=== PATIENT | female | born 1990 | race Caucasian/White ===

== ENCOUNTER 2021-09-21 09:10 | Outpatient (CLI) | payer BC ==
[2021-09-21 10:37] LABS: BHCG - Serum Negative (NEGATIVE); Pregs Control Background? CLEAR/WHITE (CLR/WHITE); Pregs Control Bar Appear? YES (CONTROL BAR)
== END 2021-09-21 09:11 | disposition home or self-care (01) ==
LOC: LABBT 09:10
PROVIDERS: ATTEND Otolaryngology Plastic Surgery within the Head & Neck
DX: Z01.812 Encounter for preprocedural laboratory examination (principal); C73 Malignant neoplasm of thyroid gland; R22.1 Localized swelling, mass and lump, neck; Z20.822 Contact with and (suspected) exposure to COVID-19
CPT/HCPCS: 84703; 85014; U0003; U0005

== ENCOUNTER 2021-09-23 07:54 | Observation (INO) | payer BC ==
[2021-09-21 09:55] VITALS: BMI 27.9
[2021-09-23] MEDS ORDERED: Lidocaine 1% w/Epinephrine 1:100K 30 ML VIAL ONE (10:18)
[2021-09-23] MEDS ORDERED: Bacitracin Zinc Ointment 30 gm TUBE ONE (10:18)
[2021-09-23] MEDS ORDERED: fentaNYL Citrate/PF 100 MCG/2 ML SYRINGE ONE (10:19)
[2021-09-23] MEDS ORDERED: Midazolam HCl 2 mg/2 ml Vial ONE (10:19)
[2021-09-23] MEDS ORDERED: HYDROmorphone 0.5 MG/0.5 ML SYRINGE ONE ×2 (10:19→12:04)
[2021-09-23] MEDS ORDERED: CEFAZOLIN 2 GM VIAL ONE (10:26)
[2021-09-23] MEDS ORDERED: Sodium Chloride 0.9% 100 ML ONE (10:26)
[2021-09-23] MEDS ORDERED: HYDROcodone/Acetaminophen 5/325 mg Tablet PO PRN (14:57)
[2021-09-23] MEDS: Sodium Chloride 0.45% 1,000 ML IV SCH (18:33)
[2021-09-23] MEDS: Ondansetron PF 4 MG/2 ML Vial IVP PRN (18:42)
[2021-09-23] MEDS ORDERED: Hydrocodone-Acetamin 15 ML UDCUP PO PRN (20:49)
[2021-09-23] MEDS ORDERED: Calcitriol 0.25 MCG CAP PO SCH (21:00)
[2021-09-23] MEDS: Morphine 2 MG/ML VIAL SLOW IVP PRN (21:07)
[2021-09-23] MEDS: CEFAZOLIN 1 GM in Sodium Chloride 0.9% 100 ML IVPB SCH (21:14)
[2021-09-23] MEDS: Calcium Carbonate 500 MG TAB PO SCH (23:35)
[2021-09-24] MEDS: Morphine 2 MG/ML VIAL SLOW IVP PRN (01:38)
[2021-09-24] MEDS: Sodium Chloride 0.45% 1,000 ML IV SCH (04:00)
[2021-09-24] MEDS: Ondansetron PF 4 MG/2 ML Vial IVP PRN ×2 (04:04→11:56)
[2021-09-24] MEDS: CEFAZOLIN 1 GM in Sodium Chloride 0.9% 100 ML IVPB SCH ×2 (04:40→11:56)
[2021-09-24] MEDS: Calcium Carbonate 500 MG TAB PO SCH (10:24)
[2021-09-24 12:23] VITALS: BP 114/70; TEMP 98.5
== END 2021-09-24 13:20 | disposition home or self-care (01) ==
LOC: SDC 07:54 → T4-B 12:57
PROVIDERS: ADMIT Otolaryngology Plastic Surgery within the Head & Neck; ATTEND Otolaryngology Plastic Surgery within the Head & Neck
PROC: 0GTK0ZZ Resection of Thyroid Gland, Open Approach (ICD-10-PCS; principal; 2021-09-23)
PROC: 0GBJ0ZZ Excision of Thyroid Gland Isthmus, Open Approach (ICD-10-PCS; 2021-09-23)
DX: C73 Malignant neoplasm of thyroid gland (principal); R13.10 Dysphagia, unspecified; Z86.16 Personal history of COVID-19
CPT/HCPCS: 36415; 82310; 83970; 88307; 96365; 96375; 96376; C1776; G0378; J0690; J1170; J2250; J2270; J2405; J3490

== ENCOUNTER 2021-10-30 12:05 | Outpatient (CLI) | payer BC ==
[2021-10-30 12:39] LABS: BHCG - Serum Negative (NEGATIVE); Pregs Control Background? CLEAR/WHITE (CLR/WHITE); Pregs Control Bar Appear? YES (CONTROL BAR)
== END 2021-10-30 12:06 | disposition home or self-care (01) ==
LOC: NM 12:05
PROVIDERS: ATTEND Internal Medicine Endocrinology, Diabetes & Metabolism
DX: C73 Malignant neoplasm of thyroid gland (principal)
CPT/HCPCS: 36415; 79005; 84703; A9517

== ENCOUNTER 2021-11-09 12:30 | Outpatient (CLI) | payer BC | END 2021-11-09 12:31 | disposition home or self-care (01) | LOC: NM 12:30 | PROVIDERS: ATTEND Internal Medicine Endocrinology, Diabetes & Metabolism | DX: C73 Malignant neoplasm of thyroid gland (principal) | CPT/HCPCS: 78018 ==